=== PATIENT | female | born 1960 | race Caucasian/White ===

== ENCOUNTER → 2017-04-07 | Outpatient (CLI) | payer OTHER ==
[~2017-04-07] MED LIST: CLONAZEPAM1 MG PO; LISINOPRIL-HYDR1 TA1 PO; SERTRALINE HYDR50 MG PO; SIMVASTATIN10 MG PO; TEMAZEPAM15 M1 PO
== END | disposition home or self-care (01) ==
LOC: MAMMO 09:18
DX: R92.1 Mammographic calcification found on diagnostic imaging of breast (principal); Z98.890 Other specified postprocedural states

== ENCOUNTER → 2019-08-27 | Outpatient (CLI) | payer BC | END | disposition home or self-care (01) | LOC: RAD 12:22 | DX: M43.12 Spondylolisthesis, cervical region (principal); M47.812 Spondylosis without myelopathy or radiculopathy, cervical region ==

== ENCOUNTER → 2019-09-06 | Outpatient (CLI) | payer BC | END | disposition home or self-care (01) | LOC: MAMMO 10:00 | DX: Z12.31 Encounter for screening mammogram for malignant neoplasm of breast (principal); Z98.890 Other specified postprocedural states ==

== ENCOUNTER → 2020-03-10 | Outpatient (CLI) | payer BC | END | disposition home or self-care (01) | LOC: RAD 12:51 | DX: M17.11 Unilateral primary osteoarthritis, right knee (principal) ==

== ENCOUNTER → 2020-05-01 | Outpatient (CLI) | payer BC | END | disposition home or self-care (01) | LOC: RAD 14:11 | DX: M54.2 Cervicalgia (principal) ==

== ENCOUNTER 2022-06-02 16:48 | Emergency (ER) | payer SELFPAY ==
[~2022-06-02] VITALS: Ht 160 cm; Wt 80.3 kg
[2022-06-02 16:52] VITALS: BP 117/73
[2022-06-02] MEDS ORDERED: OMEPRAZOLE40 MG PO (17:03)
[2022-06-02] MEDS ORDERED: FLUTICASONE-SA1 EAC4 INH (17:03)
[2022-06-02] MEDS ORDERED: ZESTORETIC 20-1 EACH PO (17:04)
[2022-06-02] MEDS ORDERED: HYDROCODONE-AC1 EAC1 PO (18:48)
== END 2022-06-02 19:00 | disposition home or self-care (01) ==
LOC: ED 16:48
DX: S52.122A Displaced fracture of head of left radius, initial encounter for closed fracture (principal); Z88.5 Allergy status to narcotic agent; Z79.899 Other long term (current) drug therapy; Z90.710 Acquired absence of both cervix and uterus; Z90.49 Acquired absence of other specified parts of digestive tract; W18.09XA Striking against other object with subsequent fall, initial encounter; Y93.89 Activity, other specified; Y92.512 Supermarket, store or market as the place of occurrence of the external cause; Y99.8 Other external cause status

== ENCOUNTER → 2024-11-02 | Outpatient (CLI) | payer OTHER ==
[~2024-11-02] MED LIST changes: +FLUTICASONE-SA1 EAC4 INH; +HYDROCODONE-AC1 EAC1 PO; +OMEPRAZOLE40 MG PO; +ZESTORETIC 20-1 EACH PO
== END | disposition home or self-care (01) ==
LOC: RAD 09:22
PROVIDERS: ATTEND Nurse Practitioner Family
DX: M47.816 Spondylosis without myelopathy or radiculopathy, lumbar region (principal); M48.061 Spinal stenosis, lumbar region without neurogenic claudication; R07.9 Chest pain, unspecified; M54.50 Low back pain, unspecified